=== PATIENT | male | born 1960 | race Two or more races ===

== ENCOUNTER 2024-04-20 10:01 | Emergency (ER) | payer MEDICAID, OTHER ==
[~2024-04-20] VITALS: Ht 177.8 cm; Wt 85.0 kg
[2024-04-20 10:49] VITALS: BP 134/78; PULSE 97; RESP 20; TEMP 98; O2SAT 95
--- NOTE | 2024-04-20 10:49 | ED.PDOC ---
Epistaxis- HPI HPI Comments 63 year old male presents for follow up on [employer] rockets. Hemostasis obtained. No other complaint Chief Complaint: Nose Bleed Time Seen by MD: 10:11 Primary Care Provider: EDMUND Reviewed Notes: Nurses Notes, Medications, Allergies Allergies: Coded Allergies: NO KNOWN ALLERGIES (Unverified , 04/20/24) Information Source: Patient Mode of Arrival: Ambulatory All Other Systems: Reviewed and Negative (Per HPI) Physical Exam General Appearance: No Apparent Distress, Normal HEENT: Normal ENT Inspection, Pharynx Normal, TMs Normal Neck: Full Range of Motion, Non-Tender, Normal, Normal Inspection Respiratory: Chest Non-Tender, Lungs Clear, No Accessory Muscle Use, No Respiratory Distress, Normal Breath Sounds Cardiovascular: No Edema, No JVD, No Murmur, No Gallop, Normal Peripheral Pulses, Regular Rate/Rhythm Breast Exam: Deferred Gastrointestinal: No Organomegaly, Non Tender, No Pulsatile Mass, Normal Bowel Sounds, Soft Genitalia: Deferred Pelvic: Deferred Rectal: Deferred Extremities: No calf tenderness, Normal capillary refill, Normal inspection, Normal range of motion, Non-tender, No pedal edema Musculoskeletal : Apperance: Normal Neurologic: Alert, clerical dentist assistant II-XII nml as Tested, No Motor Deficits, Normal Affect, Normal Mood, No Sensory Deficits Cerebellar Function: Normal Reflexes: Normal Skin: Dry, Normal Color, Warm Lymphatic: No Adenopathy Was a procedure done? Was a procedure done?: No Differential Diagnosis (NSB) Differential Diagnosis: Other X-Ray, Labs, Meds, VS Vital Signs Date Time Temp Pulse Resp B/P (MAP) Pulse Ox O2 Delivery O2 Flow Rate FiO2 04/20/24 10:49 98.0 97 20 134/78 (96) 95 98.0 04/20/24 10:06 99.5 120 20 124/91 (102) 100 X-Ray, Labs, Meds, VS Comment Hemostasis obtained. Return in 24 hours Time of 1ST Reevaluation: 10:53 Reevaluation 1ST: Improved Patient Education/Counseling: Diagnosis, Treatment Family Education/Counseling: Diagnosis, Treatment Departure 1 Departure Time of Disposition: 10:53 Impression: Primary Impression: Epistaxis Disposition: 01 HOME / SELF CARE / HOMELESS Condition: Stable Discharged With: Self Critical Care Note Critical Care Time?: No Stability Stability form required: No Heart Score Heart Score: Heart Score Response (Comments) Value History N/A 0 EKG N/A 0 Age N/A 0 Risk Factors N/A 0 Troponin N/A 0 Total 0 THEODORA JOHNSON [employer] WORK[employer] Apr 20, 2024 10:49
== END 2024-04-20 10:56 | disposition home or self-care (01) ==
LOC: ER 10:01
DX: R04.0 Epistaxis (principal)